=== PATIENT | female | born 1960 | race Two or more races ===

== ENCOUNTER 2017-09-16 05:14 | Inpatient (IN) | payer OTHER ==
[~2017-09-16 05:14] MED LIST: CYMBALTA60 MG PO; LOSARTAN POTASS50 MG PO; NEURONTIN300 MG PO; SYNTHROID112 MCG PO
[2017-09-19] MEDS ORDERED: POLY119PG PO (11:09)
[2017-09-19] MEDS ORDERED: IBUPROFEN600 MG PO (11:09)
== END 2017-09-19 12:08 | disposition home or self-care (01) | DRG 337 ==
LOC: CIR.AMB 05:14 → O/R 13:59 → SURG 13:59
PROVIDERS: Surgery
PROC: 0DNW4ZZ Release Peritoneum, Percutaneous Endoscopic Approach (ICD-10-PCS; 2017-09-16)
PROC: 0KXL4Z6 Transfer Left Abdomen Muscle, Transverse Rectus Abdominis Myocutaneous Flap, Percutaneous Endoscopic Approach (ICD-10-PCS; 2017-09-16)
PROC: 0WUF4JZ Supplement Abdominal Wall with Synthetic Substitute, Percutaneous Endoscopic Approach (ICD-10-PCS; principal; 2017-09-16 07:00)
DX: K43.0 Incisional hernia with obstruction, without gangrene (principal); K66.0 Peritoneal adhesions (postprocedural) (postinfection); R50.82 Postprocedural fever